=== PATIENT | female | born 1990 | race Caucasian/White ===

== ENCOUNTER 2017-02-19 19:35 | Emergency (ER) | payer OTHER ==
[2017-02-19 21:06] VITALS: BP 144/76; PULSE 85; O2SAT 100
[2017-02-19] MEDS ORDERED: BACTRIM DS TABLET PO STA (21:16)
[2017-02-19] MEDS ORDERED: TORAdol 30 mg Injection IM ONE (21:16)
[2017-02-19] MEDS ORDERED: TORAdol 30 mg Injection ONE (21:20)
[2017-02-19] MEDS ORDERED: BACTRIM DS TABLET PO ONE (21:20)
--- NOTE | 2017-02-19 21:22 | ERPHSYRPT ---
- History of Present Illness Time Seen by Provider: 02/19/17 21:16 Source: patient Exam Limitations: no limitations Patient Subjective Stated Complaint: had an infected daith piercing that rated 10 on pain scale. pt removed earring at 1100 today Triage Nursing Assessment: place where earring was in right earis very swolen and red. pt states that she has pain radiating from ear down into neck. pt pacing in the room Physician History: 26 y/o female comes to the ER with complaints of right ear lobe pain for the past month. Pt had her right ear pierced about a month ago. Pt describes the pain as sharp, constant, with radiation down neck, 4/10 and relieved by motrin. Pt denies any fever or chills. Timing/Duration: week(s) Quality: painful Severity: mild Location: other (right ear lobe) Possible Causes: other (piercing) Associated Symptoms: denies symptoms Allergies/Adverse Reactions: No Known Drug Allergies Allergy (Unverified 01/11/16 17:00) Home Medications: Alprazolam [Xanax 0.5 mg] 0.5 mg PO UD 01/11/16 [History] Cyclobenzaprine HCl 10 mg [Flexeril 10 MG] 10 mg PO UD 01/11/16 [History] Hydrocodone Bit/Acetaminophen [Canadensis 7.5-325 Tablet] 1 each PO UD 01/11/16 [ History] Sertraline HCl 100 mg [Zoloft 100 MG] 200 mg PO DAILY 01/11/16 [History] Hx Tetanus, Diphtheria Vaccination/Date Given: Yes Hx Influenza Vaccination/Date Given: No Hx Pneumococcal Vaccination/Date Given: No Immunizations Up to Date: Yes - Review of Systems Constitutional: No Fever, No Chills Eyes: No Symptoms Ears, Nose, & Throat: No Symptoms, Ear Pain Respiratory: No Cough, No Dyspnea Cardiac: No Chest Pain, No Edema, No Syncope Abdominal/Gastrointestinal: No Abdominal Pain, No Nausea, No Vomiting, No Diarrhea Genitourinary Symptoms: No Dysuria Musculoskeletal: No Back Pain, No Neck Pain Skin: No Rash Neurological: No Dizziness, No Focal Weakness, No Sensory Changes Psychological: No Symptoms Endocrine: No Symptoms All Other Systems: Reviewed and Negative - Past Medical History Pertinent Past Medical History: Yes Neurological History: Migraines Respiratory History: Asthma Musculoskeletal History: Other Psycho-Social History: Depression Other Medical History: BACK PAIN - Past Surgical History Past Surgical History: Yes Female Surgical History: Dilation & Curettage, Other - Social History Smoking Status: Never smoker Exposure to second hand smoke: No Drug Use: none Patient Lives Alone: No - Female History Hx Last Menstrual Period: 1 mo - Nursing Vital Signs Nursing Vital Signs: Initial Vital Signs Temperature 97.4 F 02/19/17 20:55 Pulse Rate 85 02/19/17 20:55 Respiratory Rate 20 02/19/17 20:55 Blood Pressure 144/76 02/19/17 20:55 O2 Sat by Pulse Oximetry 100 02/19/17 20:55 Pain Scale Pain Intensity 5 - Physical Exam General Appearance: no apparent distress, alert Eye Exam: PERRL/EOMI, eyes nml inspection Ears, Nose, Throat Exam: normal ENT inspection, pharynx normal, moist mucous membranes, other (right ear erythema with tenderness) Neck Exam: normal inspection, non-tender, supple, full range of motion Respiratory Exam: normal breath sounds, lungs clear, No respiratory distress Cardiovascular Exam: regular rate/rhythm, normal heart sounds Gastrointestinal/Abdomen Exam: soft, mass, No tenderness Back Exam: normal inspection, normal range of motion, No CVA tenderness, No vertebral tenderness Extremity Exam: normal inspection, normal range of motion Neurologic Exam: alert, oriented x 3, cooperative, normal mood/affect, sensation nml, No motor deficits Skin Exam: normal color, warm, dry SpO2: 100 Oxygen Delivery: Room Air - Course Nursing assessment & vital signs reviewed: Yes Ordered Tests: Medication Summary Generic Name Dose Route Start Last Admin Trade Name Bartolo PRN Reason Stop Dose Admin Trimethoprim/Sulfamethoxazole 1 tab 02/19/17 21:16 Bactrim Ds Tablet PO 02/19/17 21:17 STAT STA - Progress Progress: unchanged Progress Note: 02/19/17 21:19 Pt will be treated with bactrim for cellulitis of the right ear lobe and toradol for pain. - Departure Time of Disposition: 21:20 Departure Disposition: Home Clinical Impression: Cellulitis of earlobe Qualifiers: Laterality: right Qualified Code(s): H60.11 - Cellulitis of right external ear Condition: Stable Critical Care Time: No Referrals: ASHELY KAUFFMAN [Primary Care Provider] - Instructions: Cellulitis -- Adult Additional Instructions: Follow up with your PCP on Thursday for re-evaluation. Finish the antibiotics until completion. Prescriptions: Ketorolac Tromethamine [Toradol] 10 mg PO QID PRN #20 tablet PRN Reason: Pain Sulfamethoxazole/Trimethoprim [Bactrim Ds Tablet] 1 each PO BID #13 tablet
== END 2017-02-19 21:57 | disposition home or self-care (01) ==
LOC: ED 19:35
DX: H60.11 Cellulitis of right external ear (principal)
CPT/HCPCS: 96372; 99284; J1885; A9270-GY